=== PATIENT | female | born 1975 | race Caucasian/White ===

== ENCOUNTER → 2017-05-27 | Outpatient (CLI) | payer BC ==
--- NOTE | 2017-05-29 08:21 | MM ---
Reason for exam: screening (asymptomatic). Last mammogram was performed 1 year and 9 months ago. History: Patient had first child at age 39. Physical Findings: A clinical breast exam by your physician is recommended on an annual basis and results should be correlated with mammographic findings. MG Screening Mammo w CAD Bilateral CC and MLO view(s) were taken. Prior study comparison: August 29, 2015, bilateral MG 3d screening mammo w/cad. The breast tissue is heterogeneously dense. This may lower the sensitivity of mammography. New benign oil cyst on the left breast. No significant changes when compared with prior studies. ASSESSMENT: Negative, BI-RAD 1 RECOMMENDATION: Routine screening mammogram of both breasts in 1 year.
== END | disposition home or self-care (01) ==
LOC: RADMAMWWP 10:01
PROVIDERS: ATTEND Obstetrics & Gynecology
DX: Z12.31 Encounter for screening mammogram for malignant neoplasm of breast (principal)

== ENCOUNTER → 2018-05-31 | Outpatient (CLI) | payer BC ==
--- NOTE | 2018-06-02 09:48 | MM ---
Reason for exam: screening (asymptomatic). Last mammogram was performed 1 year ago. History: Patient had first child at age 39. Family history of breast cancer in mother at age 58, breast cancer in aunt, and breast cancer in cousin. Physical Findings: A clinical breast exam by your physician is recommended on an annual basis and results should be correlated with mammographic findings. MG 3D Screening Mammo W/Cad Bilateral CC and MLO view(s) were taken. Prior study comparison: May 27, 2017, bilateral MG screening mammo w CAD. August 29, 2015, bilateral MG 3d screening mammo w/cad. The breast tissue is heterogeneously dense. This may lower the sensitivity of mammography. Two nodular focal asymmetries centrally and 1 o'clock left breast are more defined and incompletely disperse on 3D imaging. ASSESSMENT: Incomplete: need additional imaging evaluation, BI-RAD 0 RECOMMENDATION: Special view mammogram of the left breast. If lesion persists on supplemental views, image directed ultrasound is recommended. [facility] will attempt to contact patient to return for supplemental views and ultrasound if indicated.
== END | disposition home or self-care (01) ==
LOC: RADMAMWWP 16:40
PROVIDERS: ATTEND Obstetrics & Gynecology
DX: Z12.31 Encounter for screening mammogram for malignant neoplasm of breast (principal)
CPT/HCPCS: 77063; 77067

== ENCOUNTER → 2018-06-07 | Outpatient (CLI) | payer BC ==
--- NOTE | 2018-06-07 11:38 | MM ---
Reason for exam: additional evaluation requested from abnormal screening. Last mammogram was performed less than 1 month ago. History: Patient had first child at age 39. Family history of breast cancer in mother at age 58, breast cancer in aunt, and breast cancer in cousin. Physical Findings: Nurse did not find any significant physical abnormalities on exam. MG 3D Work Up W/Cad LT Spot compression CC, spot compression MLO, and ML view(s) were taken of the left breast. Prior study comparison: May 31, 2018, bilateral MG 3d screening mammo w/cad. May 27, 2017, bilateral MG screening mammo w CAD. The breast tissue is heterogeneously dense. This may lower the sensitivity of mammography. Nodular asymmetry persists lateral subareolar region left CC spot. No clear persisting abnormality on spot 3D MLO view. These results were verbally communicated with the patient and result sheet given to the patient on 06/07/18. ASSESSMENT: Incomplete: need additional imaging evaluation, BI-RAD 0 RECOMMENDATION: Ultrasound of the left breast. (12-6 o'clock)
--- NOTE | 2018-06-07 11:40 | USB ---
Reason for exam: additional evaluation requested from abnormal screening. History: Patient had first child at age 39. Family history of breast cancer in mother at age 58, breast cancer in aunt, and breast cancer in cousin. US Breast Workup Limited LT Left limited breast ultrasound including focal area of concern, retroareolar and axilla demonstrates a 0.2cm calcification at 1 o'clock and a 0.4 x 0.3 x 0.3cm lesion too small to characterize at 1 o'clock. 6 month follow up recommended. These results were verbally communicated with the patient and result sheet given to the patient on 06/07/18. ASSESSMENT: Probably benign, BI-RAD 3 RECOMMENDATION: Follow-up diagnostic mammogram and ultrasound of the left breast in 6 months.
== END | disposition home or self-care (01) ==
LOC: RADMAMWWP 08:56
PROVIDERS: ATTEND Obstetrics & Gynecology
DX: R92.8 Other abnormal and inconclusive findings on diagnostic imaging of breast (principal)
CPT/HCPCS: 77061; 77065

== ENCOUNTER → 2018-11-23 | Outpatient (CLI) | payer BC ==
--- NOTE | 2018-11-25 16:03 | MM ---
Reason for exam: follow-up at short interval from prior study. Last mammogram was performed 6 months ago. History: Patient had first child at age 39. Family history of breast cancer in mother at age 58, breast cancer in aunt, and breast cancer in cousin. Indicated problem(s): palpable abnormality in the left breast. Physical Findings: Nurse did not find any significant physical abnormalities on exam. MG 3D Diag Mammo W/Cad LT CC, MLO, and ML view(s) were taken of the left breast. Prior study comparison: June 07, 2018, left breast MG 3d work up w/cad LT. May 31, 2018, bilateral MG 3d screening mammo w/cad. The breast tissue is heterogeneously dense. This may lower the sensitivity of mammography. No discrete abnormality including area of concern which was marked with a BB. Focal asymmetry. ASSESSMENT: Probably benign, BI-RAD 3 RECOMMENDATION: Return to routine screening mammogram schedule for both breasts.
--- NOTE | 2018-11-25 16:07 | USB ---
History: Patient had first child at age 39. Family history of breast cancer in mother at age 58, breast cancer in aunt, and breast cancer in cousin. Took hormonal contraceptives for 20 years beginning at age 19. Physical Findings: Nurse did not find any significant physical abnormalities on exam. US Breast LT Left complete breast ultrasound includes all four quadrants, the retroareolar region and axilla. Finding demonstrates no cystic or solid lesion seen. These results were verbally communicated with the patient and result sheet given to the patient on 11/24/18. ASSESSMENT: Probably benign, BI-RAD 3 RECOMMENDATION: Return to routine screening mammogram schedule for both breasts.
== END | disposition home or self-care (01) ==
LOC: RADMAMWWP 09:28
PROVIDERS: ATTEND Surgery
DX: R92.8 Other abnormal and inconclusive findings on diagnostic imaging of breast (principal)
CPT/HCPCS: 77061; 77065

== ENCOUNTER → 2019-07-04 | Outpatient (CLI) | payer BC ==
--- NOTE | 2019-07-06 09:07 | MM ---
Reason for exam: screening (asymptomatic). Last mammogram was performed 7 months ago. History: Patient had first child at age 39. Family history of breast cancer in mother at age 58, breast cancer in aunt, and breast cancer in cousin. Took hormonal contraceptives for 20 years beginning at age 19. Physical Findings: A clinical breast exam by your physician is recommended on an annual basis and results should be correlated with mammographic findings. MG 3D Screening Mammo W/Cad Bilateral CC and MLO view(s) were taken. Prior study comparison: November 23, 2018, left breast MG 3d diag mammo w/cad LT. June 07, 2018, left breast MG 3d work up w/cad LT. May 31, 2018, bilateral MG 3d screening mammo w/cad. May 27, 2017, bilateral MG screening mammo w CAD. August 29, 2015, bilateral MG 3d screening mammo w/cad. The breast tissue is heterogeneously dense. This may lower the sensitivity of mammography. Posterior superior and central asymmetric density left MLO view appears more defined but may represent an island of fibroglandular tissue on the 3D images. 6 month follow up recommended. ASSESSMENT: Probably benign, BI-RAD 3 RECOMMENDATION: Follow-up diagnostic mammogram of the left breast in 6 months.
== END | disposition home or self-care (01) ==
LOC: RADMAMWWP 09:13
PROVIDERS: ATTEND Obstetrics & Gynecology
DX: Z12.31 Encounter for screening mammogram for malignant neoplasm of breast (principal)
CPT/HCPCS: 77063; 77067

== ENCOUNTER → 2020-01-20 | Outpatient (CLI) | payer BC ==
--- NOTE | 2020-01-20 14:00 | MM ---
Reason for exam: follow-up at short interval from prior study. Last mammogram was performed 7 months ago. History: Patient had first child at age 39. Family history of breast cancer in mother at age 58, breast cancer in aunt, and breast cancer in cousin. Took hormonal contraceptives for 20 years beginning at age 19. Physical Findings: Nurse did not find any significant physical abnormalities on exam. MG 3D Diag Mammo W/Cad LT CC and MLO view(s) were taken of the left breast. Prior study comparison: July 04, 2019, bilateral MG 3d screening mammo w/cad. November 23, 2018, left breast MG 3d diag mammo w/cad LT. The breast tissue is heterogeneously dense. This may lower the sensitivity of mammography. Left superior asymmetry improves on additional exam. Precautionary 6 month follow up. These results were verbally communicated with the patient and result sheet given to the patient on 01/20/20. ASSESSMENT: Probably benign, BI-RAD 3 RECOMMENDATION: Follow-up diagnostic mammogram of both breasts in 6 months. Back on schedule.
== END | disposition home or self-care (01) ==
LOC: RADMAMWWP 12:50
PROVIDERS: ATTEND Obstetrics & Gynecology
DX: R92.8 Other abnormal and inconclusive findings on diagnostic imaging of breast (principal)
CPT/HCPCS: 77061; 77065

== ENCOUNTER → 2020-09-26 | Outpatient (CLI) | payer BC ==
--- NOTE | 2020-09-26 11:39 | MM ---
Reason for exam: additional evaluation requested from prior study. Last mammogram was performed 8 months ago. History: Patient had first child at age 39. Family history of breast cancer in mother at age 58, breast cancer in aunt, and breast cancer in cousin. Took hormonal contraceptives for 20 years beginning at age 19. Physical Findings: Nurse did not find any significant physical abnormalities on exam. MG 3D Diag Mammo W/Cad [facility] Bilateral CC and MLO view(s) were taken. Prior study comparison: January 20, 2020, left breast MG 3d diag mammo w/cad LT. July 04, 2019, bilateral MG 3d screening mammo w/cad. November 23, 2018, left breast MG 3d diag mammo w/cad LT. May 31, 2018, bilateral MG 3d screening mammo w/cad. May 27, 2017, bilateral MG screening mammo w CAD. The breast tissue is heterogeneously dense. This may lower the sensitivity of mammography. Areas of asymmetric density do not persist on 3D images. No significant new findings when compared with previous films. These results were verbally communicated with the patient and result sheet given to the patient on 09/26/20. ASSESSMENT: Benign, BI-RAD 2 RECOMMENDATION: Routine screening mammogram of both breasts in 1 year.
== END | disposition home or self-care (01) ==
LOC: RADMAMWWP 10:56
PROVIDERS: ATTEND Obstetrics & Gynecology
DX: R92.8 Other abnormal and inconclusive findings on diagnostic imaging of breast (principal)
CPT/HCPCS: 77062; 77066

== ENCOUNTER → 2021-11-14 | Outpatient (CLI) | payer BC ==
--- NOTE | 2021-11-18 12:05 | MM ---
Reason for exam: screening (asymptomatic). Last mammogram was performed 1 year and 2 months ago. History: Patient had first child at age 39. Family history of breast cancer in mother at age 58, breast cancer in aunt, and breast cancer in cousin. Took hormonal contraceptives for 20 years beginning at age 19. Physical Findings: A clinical breast exam by your physician is recommended on an annual basis and results should be correlated with mammographic findings. MG 3D Screening Mammo W/Cad Bilateral CC and MLO view(s) were taken. Prior study comparison: September 26, 2020, bilateral MG 3d diag mammo w/cad [facility]. January 20, 2020, left breast MG 3d diag mammo w/cad LT. The breast tissue is heterogeneously dense. This may lower the sensitivity of mammography. Faint small grouped central microcalcifications right breast are now demonstrated. Benign oil cyst calcifications bilaterally. ASSESSMENT: Incomplete: need additional imaging evaluation, BI-RAD 0 RECOMMENDATION: Special view mammogram of the right breast. (magnification) [facility] will attempt to contact patient to return for supplemental views.
== END | disposition home or self-care (01) ==
LOC: RADMAMWWP 14:36
PROVIDERS: ATTEND Obstetrics & Gynecology
DX: Z12.31 Encounter for screening mammogram for malignant neoplasm of breast (principal); Z80.3 Family history of malignant neoplasm of breast
CPT/HCPCS: 77063; 77067

== ENCOUNTER → 2021-11-26 | Outpatient (CLI) | payer BC ==
--- NOTE | 2021-11-28 11:59 | MM ---
Reason for exam: additional evaluation requested from abnormal screening. Last mammogram was performed less than 1 month ago. History: Patient had first child at age 39. Family history of breast cancer in mother at age 58, breast cancer in aunt, and breast cancer in cousin. Took hormonal contraceptives for 20 years beginning at age 19. Physical Findings: Nurse did not find any significant physical abnormalities on exam. MG 3D Work Up W/Cad RT CC with magnification, LM with magnification, and LM view(s) were taken of the right breast. Prior study comparison: November 14, 2021, bilateral MG 3d screening mammo w/cad. September 26, 2020, bilateral MG 3d diag mammo w/cad [facility]. The breast tissue is heterogeneously dense. This may lower the sensitivity of mammography. Central grouped punctate calcifications along the retroareolar plane. Biopsy recommended. These results were verbally communicated with the patient and result sheet given to the patient on 11/26/21. ASSESSMENT: Suspicious, BI-RAD 4 RECOMMENDATION: Stereotactic core biopsy of the right breast. Called Dr. August's office with mammographic findings and has scheduled an appointment for the patient for 01/09/22 at 10:[address] House. Biopsy scheduled for 12/30/21 at 8:00. PRELIMINARY REPORT CALLED AND FAXED TO DR. HOUSE ON 11/28/21.
== END | disposition home or self-care (01) ==
LOC: RADMAMWWP 10:15
PROVIDERS: ATTEND Obstetrics & Gynecology
DX: R92.8 Other abnormal and inconclusive findings on diagnostic imaging of breast (principal); Z80.3 Family history of malignant neoplasm of breast
CPT/HCPCS: 77061; 77065

== ENCOUNTER → 2021-12-30 | Day surgery (SDC) | payer BC ==
[2021-12-30 07:25] VITALS: RESP 16
[2021-12-30 08:35] VITALS: BP 100/66; PULSE 67; TEMP 98.2
--- NOTE | 2021-12-30 12:34 | MM ---
EXAMINATION TYPE: MG stereo VAD BX RT DATE OF EXAM: 12/30/2021 COMPARISON: 11/14/2021 and 11/26/2021 CLINICAL HISTORY: 46-year-old female R92.8, abnormal mammogram TECHNIQUE: Stereotactic guided core biopsy of the central right breast. FINDINGS: The procedure of stereotactic guided core biopsy was explained to the patient. Benefits, alternatives, and risks were discussed. An informed consent was then obtained. The calcifications were best seen on the CC image. Therefore, a CC from approach was utilized. I performed the localization following the remainder of the procedure. A vacuum assisted biopsy gun was used to obtain 6 core samples. The patient tolerated the procedure well without any immediate complication. The patient was kept in the radiology department for short stay after the procedure and then discharged home in stable condition. Targeted calcifications are identified in specimen mammogram. A stereo images was acquired after clip deployment and demonstrated the microclip outside of the deployment device. Unfortunately, on postbiopsy mammogram , the clip is not identified. Some faint residual microcalcifications fredy the site of biopsy. IMPRESSION: SUCCESSFUL, UNCOMPLICATED STEREOTACTIC GUIDED CORE BIOPSY OF FAINT CENTRAL RIGHT BREAST MICROCALCIFICATIONS. NOTE TECHNICAL ERROR; POSTBIOPSY MAMMOGRAM DOES NOT SHOW THE BIOPSY CLIP. IT MAY HAVE PARTIALLY DEPLOYED AND MAY HAVE BEEN PULLED OUT WHEN THE DEPLOYMENT DEVICE WAS RETRACTED. FULL PATHOLOGY RESULTS TO FOLLOW. NOTE THAT SOME RESIDUAL FAINT MICROCALCIFICATIONS INDICATE THE SITE OF BIOPSY. IF BENIGN RESULTS, SIX-MONTH FOLLOW-UP CAN BE PERFORMED. Pathology Results: Benign RIGHT BREAST, 8:00, STEREOTACTIC NEEDLE CORE BIOPSY: Proliferative fibrocystic changes including sclerosing adenosis with calcifications and columnar cell change/columnar cell hyperplasia. Recommendation Follow up mammogram of the right breast in 6 months. [place]
== END | disposition home or self-care (01) ==
LOC: RADMAMWWP 06:57
PROVIDERS: ATTEND Surgery
DX: R92.1 Mammographic calcification found on diagnostic imaging of breast (principal); N60.11 Diffuse cystic mastopathy of right breast
CPT/HCPCS: 88305; 19081; J2001

== ENCOUNTER → 2023-03-04 | Outpatient (CLI) | payer BC ==
--- NOTE | 2023-03-04 12:13 | MM ---
Reason for Exam: Screening (asymptomatic). Last mammogram was performed 1 year(s) and 4 month(s) ago. Patient History: Menarche at age 14. First Full-Term at age 39. Late child-bearing (after 30). Perimenopausal. Patient has history of breast feeding. Hormonal Contraceptives for 20 years from age 19 until age 39. 12/30/2021, Benign Core Biopsy on the right side. Maternal cousin had breast cancer, age 30. Maternal aunt had breast cancer, age 60. Mother had breast cancer, age 58. Last menstrual period: 11/28/2022 Risk Values: Lynette 5 year model risk: 2.6%. NCI Lifetime model risk: 21.9%. Prior Study Comparison: 05/31/2018 Bilateral Screening Mammogram, [facility]. 06/07/2018 Left Diagnostic Mammogram, [facility]. 11/23/2018 Left Diagnostic Mammogram, [facility]. 07/04/2019 Bilateral Screening Mammogram, [facility]. 01/20/2020 Left Diagnostic Mammogram, [facility]. 09/26/2020 Bilateral Diagnostic Mammogram, [facility]. 11/14/2021 Bilateral Screening Mammogram, [facility]. 11/26/2021 Right Diagnostic Mammogram, [facility]. 07/10/2022 Right MG 3D diag mammo w/cad RT, [facility]. Tissue Density: The breast tissue is heterogeneously dense. This may lower the sensitivity of mammography. Findings: Analyzed By CAD. There is no suspicious group of microcalcifications or new suspicious mass in either breast. Stable benign-appearing calcifications within both breasts. Overall Assessment: Benign, BI-RAD 2 Management: Screening Mammogram of both breasts in 1 year. A clinical breast exam by your physician is recommended on an annual basis and results should be correlated with mammographic findings. Electronically signed and approved by: Christopher Calvillo D.O.
== END | disposition home or self-care (01) ==
LOC: RADMAMWWP 08:12
PROVIDERS: ATTEND Surgery
DX: Z12.31 Encounter for screening mammogram for malignant neoplasm of breast (principal); Z80.3 Family history of malignant neoplasm of breast
CPT/HCPCS: 77063; 77067

== ENCOUNTER → 2024-03-23 | Outpatient (CLI) | payer BC ==
--- NOTE | 2024-03-23 08:59 | MM ---
Reason for Exam: Additional evaluation requested from prior study. Last mammogram was performed 1 year(s) and 1 month(s) ago. Patient History: Menarche at age 14. First Full-Term at age 39. Late child-bearing (after 30). Postmenopausal. Patient has history of breast feeding. Hormonal Contraceptives for 20 years from age 19 until age 39. 12/30/2021, Benign Core Biopsy on the right side. Maternal cousin had breast cancer, age 30. Maternal aunt had breast cancer, age 60. Maternal aunt had breast cancer. Maternal aunt had breast cancer. Mother had breast cancer, age 58. Risk Values: Lynette 5 year model risk: 2.5%. NCI Lifetime model risk: 21.2%. Prior Study Comparison: 05/27/2017 Bilateral Screening Mammogram, [facility]. 05/31/2018 Bilateral Screening Mammogram, [facility]. 06/07/2018 Left Diagnostic Mammogram, [facility]. 11/23/2018 Left Diagnostic Mammogram, [facility]. 07/04/2019 Bilateral Screening Mammogram, [facility]. 01/20/2020 Left Diagnostic Mammogram, [facility]. 09/26/2020 Bilateral Diagnostic Mammogram, [facility]. 11/14/2021 Bilateral Screening Mammogram, [facility]. 11/26/2021 Right Diagnostic Mammogram, [facility]. 07/10/2022 Right MG 3D diag mammo w/cad RT, [facility]. 03/04/2023 Bilateral MG 3D screening mammo w/cad, [facility]. Tissue Density: The breasts are heterogeneously dense, which may obscure small masses. Findings: Analyzed By CAD. Slight interval increasing groups and regional microcalcifications central outer right breast middle to posterior depth. However, on magnification views, these calcifications become less pronounced. Six-month follow-up recommended. Overall Assessment: Probably benign, BI-RAD 3 Management: Diagnostic Mammogram of the right breast in 6 months. SEE NOTE BELOW IN REGARDS TO PATIENT'S INCREASED LIFETIME RISK SCORE. Results were given to the patient verbally at the time of exam. Patient should continue monthly self-breast exams. A clinical breast exam by your physician is recommended on an annual basis. This exam should not preclude additional follow-up of suspicious palpable abnormalities. Note on Lynette scores and lifetime risk: 1. A Lynette score greater than 3% is considered moderate risk. If this is the case, consider specialist referral to assess eligibility for a risk reducing agent. 2. If overall lifetime risk for the development of breast cancer is 20% or higher, the patient may qualify for future screening with alternating mammogram and breast MRI. Electronically signed and approved by: Soledad Loo M.D. Radiologist
== END | disposition home or self-care (01) ==
LOC: RADMAMWWP 07:54
PROVIDERS: ATTEND Surgery
DX: R92.8 Other abnormal and inconclusive findings on diagnostic imaging of breast (principal); R92.333 Mammographic heterogeneous density, bilateral breasts; R92.0 Mammographic microcalcification found on diagnostic imaging of breast; Z80.3 Family history of malignant neoplasm of breast; Z78.0 Asymptomatic menopausal state
CPT/HCPCS: 77062; 77066

== ENCOUNTER → 2024-05-20 | Outpatient (CLI) | payer BC ==
--- NOTE | 2024-05-23 15:27 | BMR ---
EXAM DATE: 05/20/2024 EXAM DESCRIPTION: MRI-Breast Bilat (W/WO Contrast) INDICATION: Abnormal mammogram with previous biopsy for calcifications in the right breast. Dense breast. Family history of breast cancer COMPARISON: PRIOR MRIs: None available. Correlation to mammograms: 03/04/2023, 03/23/2024. Correlation to ultrasound: None available. CONTRAST: 9 cc Gadavist IV gadolinium contrast TECHNIQUE: Multiplanar multisequence MR imaging of both breasts was performed with a dedicated breast coil. Images were obtained before and after administration of IV gadolinium, using the standard breast mass protocol. Computer aided detection was utilized for interpretation. FINDINGS: LMP: Not provided General breast composition: The breast is heterogeneously dense Background parenchymal enhancement: Mild RIGHT BREAST: The T2 weighted series shows no areas of abnormal signal intensity. Review of the dynamic series shows no early or abnormal enhancement. LEFT BREAST: The T2 weighted series shows no areas of abnormal signal intensity. Review of the dynamic series shows several foci of asymmetric enhancement predominantly within the central left breast. LYMPH NODES: There is no evidence of internal mammary or axillary adenopathy. IMPRESSION: RIGHT BREAST: No MR evidence of malignancy. LEFT BREAST: Several foci of enhancement predominantly in the central left breast. Review of previous mammograms demonstrates multiple calcifications in the left breast for which 2D spot magnification views are recommended to assess for possible areas of suspicion. OVERALL ASSESSMENT -- BI- RADS O: Indeterminate ANNUAL SCREENING BREAST MRI IN ADDITION TO MAMMOGRAPHY IS RECOMMENDED IN PATIENTS WITH LIFETIME RISK OF BREAST CANCER >20% MTDD
== END | disposition home or self-care (01) ==
LOC: RADMRIMAIN 08:32
PROVIDERS: ATTEND Surgery
DX: R92.8 Other abnormal and inconclusive findings on diagnostic imaging of breast (principal); R92.30 Dense breasts, unspecified; Z80.3 Family history of malignant neoplasm of breast
CPT/HCPCS: 77049; A9585

== ENCOUNTER → 2024-06-08 | Outpatient (CLI) | payer BC ==
--- NOTE | 2024-06-08 10:41 | MM ---
Reason for Exam: Clinical finding. Last screening mammogram was performed 2 month(s) ago. Patient History: Menarche at age 14. First Full-Term at age 39. Late child-bearing (after 30). Postmenopausal. Patient has history of breast feeding. Hormonal Contraceptives for 20 years from age 19 until age 39. 12/30/2021, Benign Core Biopsy on the right side. Maternal cousin had breast cancer, age 30. Maternal aunt had breast cancer, age 60. Maternal aunt had breast cancer. Maternal aunt had breast cancer. Mother had breast cancer, age 58. Risk Values: Lynette 5 year model risk: 2.5%. NCI Lifetime model risk: 21.2%. Tissue Density: Left: The breasts are heterogeneously dense, which may obscure small masses. Findings: Analyzed By CAD. Subtle microcalcifications or indeterminant outer lower left breast 5 cm from the nipple. Stereotactic core biopsy is recommended. Overall Assessment: Suspicious, BI-RAD 4 Management: Stereotactic Core Biopsy of the left breast. . Results were given to the patient verbally at the time of exam. Patient should continue monthly self-breast exams. A clinical breast exam by your physician is recommended on an annual basis. This exam should not preclude additional follow-up of suspicious palpable abnormalities. Note on Lynette scores and lifetime risk: 1. A Lynette score greater than 3% is considered moderate risk. If this is the case, consider specialist referral to assess eligibility for a risk reducing agent. 2. If overall lifetime risk for the development of breast cancer is 20% or higher, the patient may qualify for future screening with alternating mammogram and breast MRI. Electronically signed and approved by: Negro Hillman M.D. Radiologis
== END | disposition home or self-care (01) ==
LOC: RADMAMWWP 09:40
PROVIDERS: ATTEND Surgery
DX: R92.332 Mammographic heterogeneous density, left breast (principal); R92.8 Other abnormal and inconclusive findings on diagnostic imaging of breast; Z78.0 Asymptomatic menopausal state; Z80.3 Family history of malignant neoplasm of breast
CPT/HCPCS: 77061; 77065

== ENCOUNTER → 2024-07-28 | Day surgery (SDC) | payer BC ==
--- NOTE | 2024-08-05 09:00 | MM ---
Risk Values: Lynette 5 year model risk: 2.5%. NCI Lifetime model risk: 21.2%. Prior Study Comparison: 03/04/2023 Bilateral MG 3D screening mammo w/cad, [facility]. 03/23/2024 Bilateral MG 3D diag mammo w/cad [facility], [facility]. 06/08/2024 Left MG 3D diag mammo w/cad [facility], [facility]. Pathology Description: Marker Left Behind. Specimen Radiograph. Calcium Found: Yes Approach: Lateral to Medial Needle Type: Eviva Cores: 7 Skin Nicks: 1 Gauge: 9 The microcalcifications in question within the left breast were targeted by the undersigned. Procedure was performed by the undersigned. Informed consent was obtained and all of the patients questions were answered. The standard sterile technique was utilized and appropriate local anesthesia was obtained with 1% licocaine. Mammotome probe was advanced and multiple core samples were obtained and sent to pathology for interpretation. Microclip marker was deployed at the site of biopsy. Post procedural mammogram demonstrates appropriate deployment of radiopaque clip marker. The patient tolerated the procedure well and left the department in stable condition. Pathology results are pending. Impression: Successful stereotactic core biopsy left breast. Pathology Results: Result: Benign, Fibrocystic change. Pathology and radiology were reviewed. Findings are concordant. LEFT BREAST, STEREOTACTIC NEEDLE CORE BIOPSY: Benign breast with fibrocystic changes including columnar cell change and sclerosing adenosis with calcifications. Overall Assessment: Benign Management: Diagnostic Mammogram of the left breast in 6 months. Electronically signed and approved by: Negro Hlilman M.D. Radiologis
== END ==
LOC: RADMAMWWP 09:52
PROVIDERS: ATTEND Surgery
DX: N60.22 Fibroadenosis of left breast (principal); N60.12 Diffuse cystic mastopathy of left breast
CPT/HCPCS: 88305; 19081; A4648

== ENCOUNTER → 2024-12-12 | Outpatient (CLI) | payer BC ==
--- NOTE | 2024-12-12 11:19 | MM ---
Reason for Exam: Follow-up at short interval from prior study. Last screening mammogram was performed 8 month(s) ago. Patient History: Menarche at age 14. First Full-Term at age 39. Late child-bearing (after 32). Postmenopausal. Patient has history of breast feeding. Hormonal Contraceptives for 20 years from age 19 until age 39. 07/28/2024, Benign MG stereo VAD BX LT on the left side. 12/30/2021, Benign Core Biopsy on the right side. Maternal cousin had breast cancer, age 30. Maternal aunt had breast cancer, age 60. Maternal aunt had breast cancer. Maternal aunt had breast cancer. Mother had breast cancer, age 58. Risk Values: Lynette 5 year model risk: 3.8%. NCI Lifetime model risk: 26.5%. Tissue Density: The breasts are heterogeneously dense, which may obscure small masses. Findings: Analyzed By CAD. Left breast biopsy clip. No new suspicious masses, calcifications or distortions. Overall Assessment: Benign, BI-RAD 2 Management: Screening Mammogram of both breasts in 1 year. Results were given to the patient verbally at the time of exam. Patient should continue monthly self-breast exams. A clinical breast exam by your physician is recommended on an annual basis. This exam should not preclude additional follow-up of suspicious palpable abnormalities. Note on Lynette scores and lifetime risk: 1. A Lynette score greater than 3% is considered moderate risk. If this is the case, consider specialist referral to assess eligibility for a risk reducing agent. 2. If overall lifetime risk for the development of breast cancer is 20% or higher, the patient may qualify for future screening with alternating mammogram and breast MRI. [facility], , 12/12/2024 11:05 AM. Electronically signed and approved by: Nuan Galicia DO
== END | disposition home or self-care (01) ==
LOC: RADMAMWWP 10:48
PROVIDERS: ATTEND Surgery
DX: R92.2 Inconclusive mammogram (principal); R92.8 Other abnormal and inconclusive findings on diagnostic imaging of breast; R92.333 Mammographic heterogeneous density, bilateral breasts; Z78.0 Asymptomatic menopausal state; Z80.3 Family history of malignant neoplasm of breast
CPT/HCPCS: 77062; 77066

== ENCOUNTER → 2025-05-30 | Outpatient (CLI) | payer BC ==
--- NOTE | 2025-06-06 12:31 | BMR ---
EXAM DATE: 05/30/2025 EXAM DESCRIPTION: MRI-Breast Bilat (W/WO Contrast) INDICATION: Screening MRI>20% lifetime risk for malignancy presenting for high risk surveillance COMPARISON: Comparison is made with relevant prior imaging in PACS. CONTRAST: 6.5 cc of Gadobutrol. TECHNIQUE: Multiplanar MRI imaging of both breasts was performed with a dedicated breast coil, before and after intravenous administration of gadolinium contrast, using the standard breast mass protocol. Computer-aided detection was used to aid in interpretation. Study was performed at [facility] with Radiologic interpretation by [facility]. FINDINGS: General breast composition: The breast is heterogeneously dense Background parenchymal enhancement: Mild FINDINGS: Right Breast: Review of the dynamic contrast-enhanced series shows no rapidly enhancing masses, suspicious enhancement patterns or other abnormalities. The T2 weighted series shows no abnormality. Left Breast: Review of the dynamic contrast-enhanced series shows no rapidly enhancing masses, suspicious enhancement patterns or other abnormalities. The T2 weighted series shows no abnormality. IMPRESSION: No MRI evidence of malignancy. BI-RADS Category1- Negative Recommendation: MRI screening in 1 year. Recommend routine screening on schedule, patient is due for screening mammogram in [facility]
== END | disposition home or self-care (01) ==
LOC: RADMRIMAIN 07:47
PROVIDERS: ATTEND Surgery
DX: R92.8 Other abnormal and inconclusive findings on diagnostic imaging of breast (principal)
CPT/HCPCS: 77049; A9585